=== PATIENT | female | born 1965 | race Caucasian/White ===

== ENCOUNTER 2017-02-19 15:33 | Emergency (ER) ==
--- NOTE | 2017-02-19 17:05 | PROVIDER DOCUMENTATION ---
HPI-Abdominal Pain/GI Problem - General Chief Complaint: Abdominal Pain Stated Complaint: ABD PAIN,DIARRHEA Time Seen by Provider: 02/19/17 16:59 Source: patient Allergies/Adverse Reactions: Patient Allergies Allergy/AdvReac Type Severity Reaction Status Date / Time dextromethorphan HBr * Allergy Intermediate RASH Verified 04/09/16 20:29 [From Robitussin-DM] guaifenesin Allergy Intermediate RASH Verified 04/09/16 20:29 [From Robitussin-DM] tramadol HCl * [From Ultram] Allergy Mild RASH Verified 04/09/16 20:29 rofecoxib [From Vioxx] Allergy HIVES Verified 04/09/16 20:29 sulfamethoxazole Allergy ITCHING Verified 04/09/16 20:29 [From Bactrim] trimethoprim [From Bactrim] Allergy ITCHING Verified 04/09/16 20:29 Home Medications: Home Medication List Medication Instructions Recorded Confirmed Last Taken Type Rosuvastatin Calcium [Crestor] 20 mg PO HS #30 tablet 07/29/15 04/16/16 19:00 Rx Trazodone [Desyrel] 150 mg PO QHS #30 tablet 07/29/15 04/16/16 04/15/16 19:00 Rx Aspirin 81 mg PO QAM 02/02/16 04/16/16 04/15/16 08:00 History BENAZEpril [Lotensin] 20 mg PO QAM 02/02/16 04/16/16 04/15/16 08:00 History Carvedilol [Coreg] 6.25 mg PO BID 02/02/16 04/16/16 04/15/16 08:00 History Clopidogrel [Plavix] 75 mg PO QAM 02/02/16 04/16/16 04/15/16 08:00 History Famotidine [Pepcid] 20 mg PO BID 02/02/16 04/16/16 04/15/16 09:00 History Fluoxetine [Prozac] 40 mg PO QAM 02/02/16 04/16/16 04/15/16 08:00 History Furosemide [Lasix] 40 mg PO QAM 02/02/16 04/16/16 04/15/16 08:00 History Isosorbide Mononitrate E.r. [Imdur] 30 mg PO QAM 02/02/16 04/16/16 04/15/16 08: 00 History Levothyroxine [Synthroid] 88 microgm PO QAM 02/02/16 04/16/16 04/15/16 07:00 History Metformin [Glucophage] 1,000 mg PO BID 02/02/16 04/16/16 04/16/16 18:00 History Fluticasone/Salmet 100/50 INH 1 puff INH RTBID #1 inhaler 04/16/16 Unknown Rx [Advair 100/50 Diskus] Ciprofloxacin HCl [Cipro] 500 mg PO BID #20 tablet 02/19/17 Unknown Rx Dicyclomine [Bentyl] 10 mg PO 4XDAY #60 capsule 02/19/17 Unknown Rx Famotidine [Pepcid] 20 mg PO DAILY #30 tablet 02/19/17 Unknown Rx Promethazine [Phenergan] 25 mg PO Q6H PRN PRN #30 tablet 02/19/17 Unknown Rx - History of Present Illness-ABD Nature of Presenting Problems: 51 y/o F c/o RUQ pain x 3 days. Pt states that pain getting worse, reports no radiation. States hx of chronic gallbladder pain, but has not followed up with surgeon due to insurance. States intermittent pain, worst is 9/10. States diarrhea and nausea, denies vomiting/constipation. States gets worse with eating/drinking. Denies hx of kidney stones. Reports diarrhea x 4 today. Review of Systems - Adult - REVIEW OF SYSTEMS - ADULT Constitutional: reports: no symptoms reported. denies: chills, fever Eyes: reports: no symptoms reported. denies: blurred vision, double vision Ears, Nose, Mouth & Throat: reports: no symptoms reported. denies: ear pain, nose pain Cardiovascular: reports: no symptoms reported. denies: chest pain, palpitations Respiratory: reports: see HPI, chronic cough. denies: cough, shortness of breath Gastrointestinal: reports: see HPI, abdominal pain, diarrhea, nausea. denies: constipation, vomiting Genitourinary: reports: no symptoms reported. denies: dysuria, frequency Musculoskeletal: reports: no symptoms reported Integumentary: reports: no symptoms reported. denies: nail changes, rash Neurological: reports: no symptoms reported. denies: numbness, paresthesia Psychiatric: reports: no symptoms reported Endocrine: reports: no symptoms reported. denies: cold intolerance, heat intolerance Hematologic/Lymphatic: reports: no symptoms reported. denies: easy bruising, prolonged bleeding Allergic/Immunologic: reports: no symptoms reported All Other Systems: Reviewed and Negative Past History - Adult - PAST MEDICAL HISTORY-ADULT Review of Records: reports: Nursing Assessment Review, Medications Reviewed Major Childhood Illnesses: reports: denies history Cardiovascular: reports: cardiac disease, heart valve problem, other (triple bypass) Respiratory: reports: denies history Gastrointestinal: reports: GERD Obstetrical/Gynecological: reports: ovarian cysts, other (cervical cancer) Genitourinary: reports: denies history Musculoskeletal: reports: denies history Neurological: reports: denies history Psychiatric: reports: depression, psychiatric problems Endocrine/Immune: reports: Diabetes, thyroid disorder (hypothyroid) Other Conditions: reports: denies history - PRIOR SURGERIES/PROCEDURES Surgical/Procedure History: reports: appendectomy, BTL, orthopedic (extremity) ( R knee, R ankle, bilat elbows), other (triple bypass) - PRIOR HOSPITALIZATIONS Prior Hospitalizations: reports: for similar symptoms - IMMUNIZATION STATUS Childhood Immunizations: UTD Flu Vaccine: See Nurse Assessment - FAMILY HISTORY Family History: reviewed, not pertinent Physical Exam-General - PHYSICAL EXAM-ADULT Initial Vital Signs Reviewed: Yes - CONSTITUTIONAL General Appearance: alert, mild distress - EYES Eyes: pink conjunctivae - HEAD, EARS, NOSE, MOUTH & THROAT HENMT: normocephalic/atraumatic - NECK Neck: normal inspection - RESPIRATORY Respiratory: no pleuratic chest pain, no respiratory distress, decreased breath sounds, wheezing (mild, bilat UL). negative: crackles, rales, rhonchi, stridor - CARDIOVASCULAR Cardiovascular: regular rate, rhythm. negative: bradycardia, tachycardia - GASTROINTESTINAL (ABDOMEN) Abdominal Exam: normal bowel sounds, soft, tenderness (RUQ), Rocha's sign. negative: distended, guarding, rigid, rebound, McBurney's point tenderness - MUSCULOSKELETAL Back Exam: normal inspection, no CVA tenderness Extremity: normal gait - SKIN Integumentary: normal color, normal turgor, warm/dry - NEUROLOGIC Neurologic: negative: aphasia - PSYCHIATRIC Psych/Mental Status: normal mood/affect, normal thought content, normal thought process, oriented x 3 Progress - PLAN OF CARE/RESULTS Progress/Plan/Lab Results: Discussed pt with Dr. Monroe; he agreed with d/c plan. Discussed medication use and f/u with pt. - XRAY 1 XRAY Study: Chest, Abdomen XRAY Interpretation: nonspecific gas pattern; perihilar lymphadenopathy with bronchitis Departure - Departure Time of Disposition Order: 18:50 DIAGNOSIS: Bronchitis Abdominal pain Qualifiers: Abdominal location: right upper quadrant Qualified Code(s): R10.11 - Right upper quadrant pain Disposition: HOME 01 Certified Medical Emergency: Emergent Condition: Stable Additional Instructions: Take medications as directed. Follow up with specialist for further management. Return if symptoms get worse. ED Follow Up Instructions: You have been treated by a care provider in the Emergency Department. These instructions are being provided to you so you can have an understanding of how to care for yourself upon discharge. Upon discharge from the Emergency Department, you are responsible for making arrangements for follow-up care by a physician of your choice. Take all prescribed medications as directed. Return to the Emergency Department immediately for any new or worsening symptoms. You may call the Physician Referral phone number at [phone] to obtain a list of Physicians who are taking new patients. Prescriptions: Dicyclomine [Bentyl] 10 mg PO 4XDAY #60 capsule Ciprofloxacin HCl [Cipro] 500 mg PO BID #20 tablet Famotidine [Pepcid] 20 mg PO DAILY #30 tablet Promethazine [Phenergan] 25 mg PO Q6H PRN PRN #30 tablet PRN Reason: Nausea Referrals: Valente Carroll MD [Primary Care Provider] - Sage Garcia MD [STAFF PHYSICIAN] - Attestation - Physician/ KELLEY Attestation Patient care was provided by Advanced Practice Provider:: Yes Advanced Practice Provider:: Kaylynn Montelongo Advanced Practice Provider documentation review:: The Mid-level provider documentation, treatment plan and medical decision making was reviewed by the physician who agrees with all treatment and medical decision making by the [facility].
[2017-02-19 17:32] LABS: BILIRUBIN URINE NEGATIVE (NEGATIVE); BLOOD URINE NEGATIVE (NEGATIVE); COLOR YELLOW; GLUCOSE URINE NEGATIVE (NEGATIVE); LEUKOCYTES URINE NEGATIVE (NEGATIVE); NITRITE URINE NEGATIVE (NEGATIVE); PROTEIN URINE NEGATIVE (NEGATIVE); SP GRAVITY URINE 1.008; TURBIDITY URINE CLEAR (CLEAR); URINE CULTURE NEEDED? NO; URINE MICRO REVIEW NEEDED? NO; URINE SOURCE CLEAN CATCH; UROBILINOGEN URINE NORMAL (NORMAL)
[2017-02-19 17:35] LABS: UR EPITHELIAL CELLS <10 /HPF (<10); URINE BACTERIA NEGATIVE /HPF; URINE RBC <10 /HPF (<10); URINE WBC <10 /HPF (<10)
[2017-02-19 18:06] LABS: MANUAL DIFF NEEDED? NO
[2017-02-19 18:14] LABS: BASO% 0.2 % (0.0-0.8); EOS# 0.15 X1000 (0.0-0.7); EOS% 1.3 % (0.0-10.0); HEMATOCRIT 46.3 % (37.0-47.0); HEMOGLOBIN 16.4 g/dL (12.0-16.0); IMM GRAN# 0.04 X1000 (0.0-0.04); IMM GRAN% 0.3 % (0.0-0.5); LYMPH% 28.2 % (20.5-51.1); MCH 31.8 PG (27-31); MCHC 35.4 g/dL (33-37); MCV 89.9 FL (81-99); MONO# 0.51 X1000 (0.11-0.59); MONO% 4.4 % (1.7-9.3); MPV 11.3 FL (7.4-10.4); NEUT% 65.6 % (42.2-75.2); PLT 184 X1000 (130-400); RBC 5.15 XMIL (4.2-5.4)
[2017-02-19 18:44] LABS: AGAP 18; ALBUMIN 4.1 g/dL (3.5-5.0); ALKALINE PHOSPHATASE 148 U/L (32-104); AMYLASE 68 U/L (20-200); BUN 6 mg/dL (8-22); CALCIUM 9.8 mg/dL (8.8-10.2); CHLORIDE 98 mmol/L (98-107); COSMO 271; GOT 18 U/L (10-30); GPT 17 U/L (10-36); LIPASE 75 U/L (13-60); SODIUM 136 mmol/L (136-145); TCO2 20 mmol/L (25-35); TOTAL BILIRUBIN 0.22 mg/dL (0.20-1.00); TOTAL PROTEIN 7.6 g/dL (6.3-8.3)
[2017-02-19] MEDS ORDERED: ROCEPHIN IM ONE (18:48)
[2017-02-19] MEDS ORDERED: XYLOCAINE-MPF 1% INJ ONE (18:48)
[2017-02-19] MEDS ORDERED: G.I. COCKTAIL PO ONE (18:48)
[2017-02-19] MEDS ORDERED: ZOFRAN ODT PO ONE (18:48)
[2017-02-19 20:07] VITALS: BP 157/71
--- NOTE | 2017-02-20 09:38 | Diag Imaging Result Document ---
PROCEDURE NAME: FLAT/UPRIGHT ABD/1 VIEW CHEST - 02/19/2017 PLAIN RADIOGRAPH OF THE CHEST AND ABDOMEN, 4 VIEWS: COMPARISON: Chest radiograph dated 04/16/2016 and chest and abdominal radiograph dated 02/17/2016. FINDINGS: There are nonspecific bowel gas and stool patterns. There is a trace amount of small bowel gas in the left side of the abdomen. There is nothing specific for bowel obstruction, however. There are stable metallic clips that project over the right lower quadrant. There is no evidence of large-volume free abdominal gas. The right hilum is somewhat prominent, which is not appreciated on the previous study. This may represent a perihilar infiltrate. Right hilar lymphadenopathy is possible. Consider evaluation with chest CT, preferably with IV contrast. At least a follow-up PA and lateral chest radiograph is recommended. The lungs are clear otherwise. There are stable CABG changes. Cardiac silhouette is unchanged. IMPRESSION: 1. ACR BI-RADS CATEGORY 2: BENIGN FINDING. Nonspecific abdomen. 2. Right hilar prominence as detailed above. Please see above discussion.
== END 2017-02-19 20:08 | disposition home or self-care (01) ==
LOC: ED 15:33
DX: J40 Bronchitis, not specified as acute or chronic (principal); R10.11 Right upper quadrant pain; R19.7 Diarrhea, unspecified; R11.0 Nausea; R05 Cough; K21.9 Gastro-esophageal reflux disease without esophagitis; Z85.41 Personal history of malignant neoplasm of cervix uteri; E03.9 Hypothyroidism, unspecified; E11.9 Type 2 diabetes mellitus without complications; F32.9 Major depressive disorder, single episode, unspecified; Z95.1 Presence of aortocoronary bypass graft; R06.2 Wheezing; Z79.899 Other long term (current) drug therapy; Z79.02 Long term (current) use of antithrombotics/antiplatelets; Z79.82 Long term (current) use of aspirin
CPT/HCPCS: 74022; 80053; 81001; 81025; 82150; 83690; 85025; J0696

== ENCOUNTER 2017-03-03 14:00 | Inpatient (IN) ==
--- NOTE | 2017-03-03 14:17 | EKG Report ---
Test Performed on : 03/03/2017 2:14:20 PM Test Reason : CHEST PAIN Blood Pressure : / mmHG Vent. Rate : 097 BPM Atrial Rate : 097 BPM P-R Int : 118 ms QRS Dur : 076 ms QT Int : 452 ms P-R-T Axes : 020 041 094 degrees QTc Int : 574 ms Normal sinus rhythm. Nonspecific ST and T wave abnormality Prolonged QT Abnormal ECG When compared with ECG of 27-FEB-2017 14:10, (Unconfirmed) Nonspecific T wave abnormality, worse in Anterior leads QT has lengthened Unconfirmed Result
[2017-03-03] MEDS ORDERED: MORPHINE IM ONE (15:42)
[2017-03-03] MEDS ORDERED: ZOFRAN IV ONE ×2 (15:42→19:27)
--- NOTE | 2017-03-03 15:42 | PROVIDER DOCUMENTATION ---
HPI-General Adult - General Chief Complaint: Shortness of Breath Stated Complaint: CHEST PAIN Time Seen by Provider: 03/03/17 15:14 Source: patient Allergies/Adverse Reactions: Patient Allergies Allergy/AdvReac Type Severity Reaction Status Date / Time dextromethorphan HBr * Allergy Intermediate RASH Verified 03/03/17 15:42 [From Robitussin-DM] guaifenesin Allergy Intermediate RASH Verified 03/03/17 15:42 [From Robitussin-DM] tramadol HCl * [From Ultram] Allergy Mild RASH Verified 03/03/17 15:42 rofecoxib [From Vioxx] Allergy HIVES Verified 03/03/17 15:42 sulfamethoxazole Allergy ITCHING Verified 03/03/17 15:42 [From Bactrim] trimethoprim [From Bactrim] Allergy ITCHING Verified 03/03/17 15:42 Home Medications: Home Medication List Medication Instructions Recorded Confirmed Last Taken Type Trazodone [Desyrel] 150 mg PO QHS #30 tablet 07/29/15 03/03/17 03/02/17 20:00 Rx Aspirin 81 mg PO QAM 02/02/16 03/03/17 03/03/17 09:00 History BENAZEpril [Lotensin] 20 mg PO QAM 02/02/16 03/03/17 03/03/17 09:00 History Carvedilol [Coreg] 6.25 mg PO BID 02/02/16 03/03/17 03/03/17 09:00 History Famotidine [Pepcid] 20 mg PO BID 02/02/16 03/03/17 03/03/17 09:00 History Fluoxetine [Prozac] 40 mg PO QAM 02/02/16 03/03/17 03/03/17 09:00 History Isosorbide Mononitrate E.r. [Imdur] 30 mg PO QAM 02/02/16 03/03/17 03/03/17 09: 00 History Levothyroxine [Synthroid] 88 microgm PO QAM 02/02/16 03/03/17 03/03/17 09:00 History Metformin [Glucophage] 1,000 mg PO BID 02/02/16 03/03/17 03/03/17 08:00 History Oxycodone HCl/Acetaminophen 1 each PO Q3-4H PRN PRN #30 tablet 02/27/1703/03/17 11:00 Rx [Percocet 5-325 mg Tablet] Buspirone HCl [Buspar] 5 mg PO BID 03/03/17 03/03/17 03/03/17 09:00 History Venlafaxine [Effexor] 75 mg PO DAILY 03/03/17 03/03/17 03/03/17 09:00 History - History of Present Illness -Gen Adult Nature of Presenting Problems: 52 yof with recent diagnosis of right lung cancer. Waiting to get in to see Oncologist at this time. Dring the night the patient developed new onset of SOB. Pt also has increased right chest pain with the SOB. Location of Pain/Injury: reports: chest Pain Radiation: reports: no radiation Quality of Pain: reports: aching, sharp Severity: reports: moderate Onset/Duration: reports: other Timing: reports: still present, getting worse Context/Activities at Onset: reports: none Similar Symptoms Previously?: No Recently seen or treated by another doctor?: No Review of Systems - Adult - REVIEW OF SYSTEMS - ADULT Constitutional: reports: see HPI Eyes: reports: no symptoms reported Ears, Nose, Mouth & Throat: reports: no symptoms reported Cardiovascular: reports: see HPI, chest pain Respiratory: reports: see HPI, cough, dyspnea on exertion, shortness of breath Gastrointestinal: reports: no symptoms reported Genitourinary: reports: no symptoms reported Musculoskeletal: reports: no symptoms reported Integumentary: reports: no symptoms reported Neurological: reports: no symptoms reported All Other Systems: Reviewed and Negative Past History - Adult - PAST MEDICAL HISTORY-ADULT Review of Records: reports: Old Records Reviewed, Nursing Assessment Review, Medications Reviewed, Social history reviewed & non-contributory. Major Childhood Illnesses: reports: denies history Cardiovascular: reports: cardiac disease, CHF, HTN, heart valve problem, hyperlipidemia, other (triple bypass) Respiratory: reports: denies history Gastrointestinal: reports: GERD Obstetrical/Gynecological: reports: ovarian cysts, other (cervical cancer) Genitourinary: reports: denies history Musculoskeletal: reports: denies history Neurological: reports: denies history Psychiatric: reports: depression, psychiatric problems Endocrine/Immune: reports: Diabetes, thyroid disorder (hypothyroid) Other Conditions: reports: denies history - PRIOR SURGERIES/PROCEDURES Surgical/Procedure History: reports: appendectomy, CABG, BTL, tonsillectomy, orthopedic (extremity) (R knee, R ankle, bilat elbows), other (triple bypass) - PRIOR HOSPITALIZATIONS Prior Hospitalizations: reports: for similar symptoms - IMMUNIZATION STATUS Childhood Immunizations: See Nurse Assessment Flu Vaccine: See Nurse Assessment - FAMILY HISTORY Family History: reviewed, not pertinent Physical Exam-General - PHYSICAL EXAM-ADULT Initial Vital Signs Reviewed: Yes - CONSTITUTIONAL General Appearance: appears well, alert, moderate distress (From pain) - EYES Eyes: PERRL/EOMI, pink conjunctivae - HEAD, EARS, NOSE, MOUTH & THROAT HENMT: normocephalic/atraumatic, moist mucous membranes, normal ENT inspection, TMs normal, pharynx normal - NECK Neck: non-tender, full range of motion, supple, normal inspection - RESPIRATORY Respiratory: chest non-tender, no respiratory distress, no accessory muscle use , decreased breath sounds, rhonchi - CARDIOVASCULAR Cardiovascular: normal peripheral pulses, regular rate, rhythm, no edema, no gallop, no JVD, no murmur - GASTROINTESTINAL (ABDOMEN) Abdominal Exam: normal bowel sounds, non tender, soft, no organomegaly, no pulsatile mass - LYMPHATIC Lymphatic: no adenopathy - MUSCULOSKELETAL Back Exam: normal inspection, no CVA tenderness, no vertebral tenderness Extremity: normal range of motion, non-tender, normal gait, normal inspection, no pedal edema, no calf tenderness, normal capillary refill, pelvis stable - SKIN Integumentary: normal color, normal turgor, warm/dry - NEUROLOGIC Neurologic: grossly normal - PSYCHIATRIC Psych/Mental Status: oriented x 3 Progress - PLAN OF CARE/RESULTS Progress/Plan/Lab Results: Vital Signs - 8 hr 03/03/17 14:05 Temperature 98.2 F Pulse Rate 99 H Respiratory Rate 21 Blood Pressure 159/70 O2 Sat by Pulse Oximetry 99 Orders Category Date Time Status EKG [EKG] Stat Ther 03/03/17 14:11 Draft Result Diagrams: 03/03/17 15:50 03/03/17 15:50 - CT/MRI 1 CT Study: Angiogram Impression: Abnormal (Large right hilar and mediastinal mass, mediastinal and right supraventricular adenopathy, as seen on 02/27/17. Some compression of SVC similar to prior, increased postobstructive consolidation/pneumonia at right upper lobe and superior segment of right lower lobe, small right pleural effusion, No evidence of PE. Per radiologist.) - CHANGE OF SHIFT REPORT (ED Provider) Report Given and Care Transferred to:: Ar Ureña ([facility]) Time of Transfer: 18:06 Items Pending: CT/MRI Results Comment: Lung CA, r/o PE, Hyponatremia, Leukocytosis Departure - Departure Time of Disposition Decision: 20:27 DIAGNOSIS: Mass of right lung, Hyponatremia Pneumonia Qualifiers: Pneumonia type: due to unspecified organism Laterality: right Lung location: unspecified part of lung Qualified Code(s): J18.9 - Pneumonia, unspecified organism Disposition: ADMITTED INPATIENT 09 Certified Medical Emergency: Emergent Condition: Stable Referrals and Follow-Ups: Valente Carroll MD [Primary Care Provider] - Attestation - Physician/ KELLEY Attestation Patient care was provided by Advanced Practice Provider:: Yes Advanced Practice Provider:: Ramirez Cole Advanced Practice Provider documentation review:: The Mid-level provider documentation, treatment plan and medical decision making was reviewed by the physician who agrees with all treatment and medical decision making by the [facility].
[2017-03-03 16:00] LABS: MANUAL DIFF NEEDED? NO
[2017-03-03 16:06] LABS: BASO% 0.1 % (0.0-0.8); EOS# 0.04 X1000 (0.0-0.7); EOS% 0.3 % (0.0-10.0); HEMATOCRIT 41.6 % (37.0-47.0); HEMOGLOBIN 14.7 g/dL (12.0-16.0); IMM GRAN# 0.05 X1000 (0.0-0.04); IMM GRAN% 0.3 % (0.0-0.5); LYMPH# 1.45 X1000 (1.2-3.4); LYMPH% 9.5 % (20.5-51.1); MCH 31.5 PG (27-31); MCHC 35.3 g/dL (33-37); MCV 89.3 FL (81-99); MONO# 0.94 X1000 (0.11-0.59); MONO% 6.2 % (1.7-9.3); MPV 10.9 FL (7.4-10.4); NEUT% 83.6 % (42.2-75.2); PLT 169 X1000 (130-400); RBC 4.66 XMIL (4.2-5.4)
[2017-03-03 16:20] LABS: AGAP 13; ALBUMIN 3.4 g/dL (3.5-5.0); ALKALINE PHOSPHATASE 151 U/L (32-104); BUN 4 mg/dL (8-22); CALCIUM 9.5 mg/dL (8.8-10.2); CHLORIDE 94 mmol/L (98-107); COSMO 256; GOT 26 U/L (10-30); GPT 25 U/L (10-36); POTASSIUM 3.9 mmol/L (3.5-5.1); SODIUM 127 mmol/L (136-145); TCO2 20 mmol/L (25-35); TOTAL BILIRUBIN 0.59 mg/dL (0.20-1.00)
--- NOTE | 2017-03-03 18:11 | ED EKG INTERP ---
This chart was entered by Yocasta Buckley Scribe, acting as scribe for Loi Camp MD. EKG Interpretation - EKG Time of EKG reading by physician:: 14:14 EKG Read and Signed by:: Loi Camp EKG Interpretation (*Must complete 3 of following elements*): Abnormal Rate: 97 Rhythm: NSR QRS: other (PROLONGED QT) ST Wave: non-specific ST changes (AND T WAVEW ABNORM) This chart was documented by the indicated scribe, (Yocasta Buckley Scribe) and accurately reflects the services I performed and decisions made by Conrado delgado Wenli X, MD, as attested by the provider's signature.
[2017-03-03] MEDS ORDERED: MORPHINE IV ONE (19:26)
[2017-03-03] MEDS ORDERED: ROCEPHIN 2 GM/NS 2 GM/50 ML IVPB IV ONE (19:49)
--- NOTE | 2017-03-03 21:16 | Diag Imaging Result Document ---
PROCEDURE NAME: ANGIOGRAM/PULMONARY ARTERIES - 03/03/2017 STUDY: CT chest with intravenous contrast. PROTOCOL: Dose reduction protocol. COMPARISON: Compared to 02/27/2017. No change in the right hilar and mediastinal mass with enlarged lymph nodes. There is development of a tiny right pleural effusion. No left effusion. The heart is not enlarged. No thoracic aortic aneurysm or dissection. Normal opacification of the pulmonary arteries and their major branches. Adenopathy and mass encase the right main pulmonary artery and it is at least partially compressed and smaller than the left main pulmonary artery. This is unchanged. Worsening postobstructive infiltrates primarily in the right upper lobe but also involving the right middle and lower lobe. Supraclavicular adenopathy is unchanged. Right main pulmonary bronchus is mildly narrowed similar to the prior exam. IMPRESSION: 1. No pulmonary emboli. 2. Worsening postobstructive consolidation/pneumonia primarily in the right upper lobe. 3. Development of a tiny right effusion. 4. The remainder of the exam is unchanged. A preliminary report was given at 7:12 p.m.
--- NOTE | 2017-03-03 22:26 | HISTORY AND PHYSICAL ---
PRIMARY CARE PROVIDER: Valente Carroll MD CHIEF COMPLAINT: Shortness of breath. Rib pain. Cough. HISTORY OF PRESENT ILLNESS: This is a 52-year-old female who was recently diagnosed with a new right lung mass room which has not been biopsied, but is suspicious for malignancy. She is waiting to see an oncologist at this time. During the night, the patient started having new-onset shortness of breath and right-sided chest and rib pain which did go along with the shortness of breath. She stated that her ribs had been hurting roughly for the past 2 weeks , but had increased last night and moved up into her chest. It did not radiate into her jaw, left side of her chest into either arm or through to her back. It was worse with cough. She also had fever and chills. She has been on 2 rounds of outpatient antibiotic for bronchitis and has had failed outpatient treatment. So she came into the emergency room. Laboratory data was obtained which showed an elevated white blood cell count at 15.26. A CT angiogram showed a right hilar and mediastinal mass, mediastinal and right supraventricular adenopathy, some compression of the SVC similar to a prior CT scan, increased postobstructive consolidation at the right upper lobe and superior segment of the right lower lobe. Also noted a small right pleural effusion. It ruled out pulmonary embolism. The patient will be admitted for further evaluation and treatment. PAST MEDICAL HISTORY: 1. Coronary artery disease status post coronary artery bypass grafting roughly 8 years ago. 2. Hypertension. 3. Hyperlipidemia. 4. Diabetes mellitus type 2, treated with p.o. medications. 5. GERD. 6. Hypothyroidism. 7. Depression. 8. COPD, but continues to use tobacco products. 9. New right-sided lung mass which has not been biopsied. However, it is suspicious for malignancy. PAST SURGICAL HISTORY: 1. Coronary artery bypass grafting 8 years ago. 2. Appendectomy. 3. Right knee surgery. 4. Right ankle and right elbow surgery. 5. Tubal ligation. 6. Tonsillectomy. 7. Tympanoplasty. SOCIAL HISTORY: She is . She lives behind her son in a [facility] trailer. She is unemployed. She lost her roughly 8 years ago. She has 3 children. Rarely uses alcohol, less than once a month. Continues to smoke a pack of cigarettes per day. Smoking cessation was gone over with the patient. She denies she wants to quit at this time. She has been smoking for roughly 35+ years. FAMILY HISTORY: Father is , had lung cancer, was a heavy smoker. Mother has is alive, has coronary artery disease and diabetes mellitus type 2. Half sister on her mother's side who has multiple sclerosis. One brother who has a history of diabetes and coronary artery disease. ALLERGIES: Dextromethorphan hydrobromide causing a rash. Guaifenesin causing a rash. Ultram causing rash. Vioxx causing hives. Bactrim DS causing itching. HOME MEDICATIONS: 1. Trazodone 150 mg p.o. at bedtime. 2. Aspirin 81 mg p.o. q.a.m. 3. Prozac 40 mg p.o. q.a.m. 4. Pepcid 20 mg p.o. b.i.d. 5. Coreg 6.25 mg p.o. b.i.d. 6. Benazepril 20 mg p.o. q.a.m. 7. Levothyroxine 88 mcg p.o. q.a.m. 8. Isosorbide 30 mg p.o. q.a.m. 9. Metformin 1000 mg p.o. b.i.d. 10. Percocet 5 one p.o. q 3-4 hours p.r.n. 11. Effexor 75 mg p.o. daily. 12. Buspar 5 mg p.o. b.i.d. REVIEW OF SYSTEMS: Fourteen point review of systems conducted with the patient. Pertinent positives listed above in the HPI. All other systems were reviewed and are negative. PHYSICAL EXAMINATION: VITAL SIGNS: Temperature 98.8 degrees, pulse 89, respirations 18, blood pressure 111/47, oxygen saturation 95-98% on room air. GENERAL: A pleasant 52-year-old female lying in the ER stretcher. She appears to be in some pain related to cough and is splinting herself with a pillow when she coughs. She is alert and oriented x3. Answers all questions appropriately. HEENT: Head is atraumatic, normocephalic. Pupils equal, round, reactive to light. Extraocular eye movement intact. Sclerae is anicteric. Conjunctivae is not pale. Oral mucosa is mildly dry. Otherwise, normal ENT assessment. NECK: Supple. No JVD. No thyromegaly. Trachea is midline. No cervical lymphadenopathy. CHEST: Symmetrical rise and fall with respirations. Chest pain on the right side is reproducible to palpation. LUNGS: Decreased bilaterally, greater on the right side. Wheezing noted on expiration mildly scattered throughout lung garcia. No rhonchi, no rales. CARDIOVASCULAR: S1-S2 appreciated. Regular rate. No murmurs, gallops, rubs. ABDOMEN: Protuberant, soft, nondistended, nontender. Bowel sounds present in all 4 quadrants. Normoactive. No pulsatile mass. No organomegaly. EXTREMITIES: No clubbing, cyanosis, or edema. 2+ pedal pulses bilaterally. GENITOURINARY: Patient voids, otherwise deferred. NEUROLOGICAL: Alert and oriented x3. Cranial nerves 2-12 appear to be grossly intact. No evidence of focal deficits. SKIN: Warm, dry and intact. No acute rash. PSYCHIATRIC: Patient has a somewhat depressed affect. DIAGNOSTIC DATA: CT of the thorax shows a large right hilar and mediastinal mass, mediastinal and right supraventricular adenopathy similar to seen on 02/27/2007, some compression of the SVC, also similar to prior. Increased postobstructive consolidation at right upper lobe and superior segment of right lower lobe. Small right pleural effusion. LABORATORY DATA: WBC 15.26, hemoglobin 14.7, hematocrit 41.6, platelet count 169,000. Sodium 127, potassium 3.9, chloride 94, carbon dioxide 20, BUN 4, creatinine 0.6, glucose 165. UA is pending. IMPRESSION AND PLAN: 1. Right upper and lower lobe postobstructive pneumonia. We will treat with intravenous Rocephin which was started in the emergency room. We will add doxycycline 100 mg intravenous q.12 hours. DuoNeb's q.6 hours. We will encourage to turn, cough and deep breathe. Also consult Dr. Sinclair related to postobstructive pneumonia and new lung mass. Blood cultures x2 are pending. 2. New right-sided lung mass which has not been defined, suspicious for malignancy. I will consult Dr. Ogden. 3. Rib pain with cough. I will give morphine 2 mg intravenously q.6 as this will help with bronchodilation. 4. Hypertension. Continue home medications. 5. Hyperlipidemia. Aware. Continue on home medications. 6. Diabetes mellitus type 2. Continue metformin and fingerstick blood sugars before meals and at bedtime. 7. Nicotine dependence. We will add a transdermal nicotine patch. Went over smoking cessation with the patient. She declines wanting to quit at this time. 8. Hypothyroidism. Check thyroid stimulating hormones level and continue Synthroid. Further recommendations per patient clinical course. Patient seen and examined. Agree with MIX CRUSHER OPERATOR note. It reflects my assessment and plan. Dictated by ISELA Wood for Mikey Nichols MD cc: ISELA Wood MD Gregory S. Cheatham, MD [facility] SYSTEMDavion
[2017-03-03] MEDS: DUONEB (A & A) INH SCH (23:45)
[2017-03-03] MEDS ORDERED: NORCO-10 PO SCH (23:45)
[2017-03-03] MEDS ORDERED: LOVENOX SUBQ SCH (23:45)
[2017-03-04] MEDS: NS 1,000 ML IV SCH ×3 (00:24→13:31)
[2017-03-04] MEDS: ZOSYN 3.375 GM/NS 3.375 GM/50 ML IVPB IV SCH ×6 (00:24→23:46)
[2017-03-04 00:35] LABS: HEMOGLOBIN A1C 7.1 % (4.8-6.0)
[2017-03-04] MEDS: NORCO-10 PO SCH ×3 (00:58→08:47)
[2017-03-04] MEDS: DUONEB (A & A) INH SCH ×4 (03:25→23:27)
[2017-03-04 06:48] LABS: MANUAL DIFF NEEDED? NO
[2017-03-04 07:10] LABS: AGAP 11; BUN 5 mg/dL (8-22); CALCIUM 9.2 mg/dL (8.8-10.2); CHLORIDE 99 mmol/L (98-107); COSMO 268; POTASSIUM 3.8 mmol/L (3.5-5.1); SODIUM 135 mmol/L (136-145); TCO2 25 mmol/L (25-35)
[2017-03-04 07:31] LABS: URINE SOURCE CLEAN CATCH
[2017-03-04 07:40] LABS: BILIRUBIN URINE NEGATIVE (NEGATIVE); BLOOD URINE NEGATIVE (NEGATIVE); CLARITY CLEAR (CLEAR); COLOR YELLOW; GLUCOSE URINE NEGATIVE (NEGATIVE); LEUKOCYTES URINE NEGATIVE (NEGATIVE); NITRITE URINE NEGATIVE (NEGATIVE); PROTEIN URINE NEGATIVE (NEGATIVE); UROBILINOGEN URINE 0.2 EU/dL (0.2-1.0)
[2017-03-04 07:55] LABS: URINE CULTURE NEEDED? NO; URINE EPITHELIAL CELLS <10 /HPF (<10); URINE RBC <10 /HPF (<10); URINE WBC <10 /HPF (<10)
[2017-03-04] MEDS ORDERED: GLUCOPHAGE PO SCH (08:00)
[2017-03-04] MEDS: SYNTHROID PO SCH (08:46)
[2017-03-04] MEDS: EFFEXOR PO SCH (08:48)
[2017-03-04] MEDS: BUSPAR PO SCH ×3 (08:48→23:45)
[2017-03-04] MEDS: ASPIRIN PO SCH (08:48)
[2017-03-04] MEDS: NICODERM PATCH TD SCH (08:49)
[2017-03-04] MEDS: PROZAC PO SCH (08:49)
[2017-03-04] MEDS ORDERED: IMDUR PO SCH (09:00)
[2017-03-04] MEDS ORDERED: PEPCID PO SCH (09:00)
[2017-03-04] MEDS ORDERED: COREG PO SCH (09:00)
[2017-03-04] MEDS ORDERED: LOTENSIN PO SCH (09:00)
[2017-03-04 10:03] LABS: BASO% 0.2 % (0.0-0.8); EOS# 0.06 X1000 (0.0-0.7); EOS% 0.5 % (0.0-10.0); HEMATOCRIT 41.8 % (37.0-47.0); HEMOGLOBIN 14.4 g/dL (12.0-16.0); IMM GRAN# 0.03 X1000 (0.0-0.04); IMM GRAN% 0.2 % (0.0-0.5); LYMPH# 2.72 X1000 (1.2-3.4); LYMPH% 21.1 % (20.5-51.1); MCH 31.3 PG (27-31); MCHC 34.4 g/dL (33-37); MCV 90.9 FL (81-99); MONO# 0.85 X1000 (0.11-0.59); MONO% 6.6 % (1.7-9.3); MPV 11.5 FL (7.4-10.4); NEUT% 71.4 % (42.2-75.2); PLT 170 X1000 (130-400)
[2017-03-04] MEDS ORDERED: VANCOMYCIN IV PER PHARMACY MISC SCH ×2 (11:00→15:30)
--- NOTE | 2017-03-04 11:27 | PROGRESS NOTE ---
DATE: 03/04/2017 SUBJECTIVE: The patient states that she feels a little bit better. She does complain of pleuritic chest pain whenever she has a coughing spell. OBJECTIVE: Vital Signs: Temperature 98.6 degrees, blood pressure 104/64, heart rate 70, respirations 18, O2 saturations 95% on 2 L nasal cannula. General: This is an elderly female, lying in bed, in no acute distress. Head: Normocephalic, atraumatic. Heart: S1, S2. Normal. Regular rate and rhythm. Lungs: coarse breath sounds. No crackles. Abdomen: Positive bowel sounds. Soft, nontender, nondistended. Extremities: No edema. No cyanosis. No calf tenderness. Neurologic: The patient is alert and oriented x3. LABS: White blood cell count 12.9, hemoglobin 14, hematocrit 41, platelets 170,000. Sodium 135, potassium 3.8, chloride 99, CO2 25, BUN 5, creatinine 0.5, glucose 117, calcium 9.2. ASSESSMENT AND PLAN: 1. Postobstructive pneumonia. We will continue with broad-spectrum antibiotics. A sputum culture is currently pending. Blood cultures are also pending. Pulmonary has been consulted. Will also add bronchodilator therapy and incentive spirometry. 2. Right-sided hilar and endobronchial mass. We will consult pulmonary. 3. Tobacco dependence. The patient states that she still smokes. We will start her on a NicoDerm patch. 4. Hypothyroidism. Continue on Synthroid. 5. Hypertension. Controlled. 6. Diabetes mellitus type 2. We will start the patient on sliding scale insulin. We will hold the patient's metformin since received IV contrast yesterday for the CT angiogram. 7. Situational depression. Continue on Effexor. 8. Coronary artery disease status post coronary artery bypass graft. Continue on the current cardiac medications. cc: Kaylynn Matta MD
[2017-03-04] MEDS ORDERED: NS 250 ML IV ONE (12:59)
[2017-03-04] MEDS ORDERED: VANCOMYCIN 1.6 GM in NS 250 ML IV ONE (13:00)
[2017-03-04] MEDS ORDERED: SOLU-MEDROL IV ONE (13:12)
[2017-03-04] MEDS ORDERED: BENADRYL IV ONE (13:13)
[2017-03-04] MEDS ORDERED: SODIUM CHLORIDE 0.9% INJ SCH (13:15)
[2017-03-04] MEDS: NORCO-10 PO PRN (16:37)
--- NOTE | 2017-03-04 17:56 | CONSULTATION ---
DATE OF CONSULTATION: 03/04/2017 CONCLUSION: Patient is admitted to the hospital with a right upper lobe consolidation. The exact etiology of this mass is uncertain. It could be an infection but also there is a good possibility it could be a malignancy. RECOMMENDATIONS: I agree with treating the patient with Zosyn. I have added vancomycin. I agree with doing a biopsy of the mass. Dr. Sinclair has been consulted and he will make the decision as to the best way to biopsy the mass if he agrees to it. DISCUSSION: The patient has been having severe right-sided chest pain which is worse with coughing. She has been coughing quite a bit. She had studies done which showed a right upper lobe mass. This has been going on for approximately 2-3 weeks. She does cough but does not seem to bring up any sputum. She has had some fever along with it. She has been treated twice with antibiotics without improvement in her symptoms. [place] [address], hemoglobin 14.4, and platelet count 170,000. Creatinine is 0.5. GFR is greater than 60. Liver function studies are normal except for an alkaline phosphatase of 151. Urinalysis shows no white cells or bacteria. Pulmonary angiogram shows worse right upper lobe postobstructive consolidation. Urinalysis showed no white cells or bacteria. PAST MEDICAL HISTORY: Positive for coronary artery disease, for which she is had coronary artery bypass grafting, hypertension, hyperlipidemia, diabetes, gastroesophageal reflux disease, hypothyroidism, depression,COPD, and most recently a right upper lobe mass. The patient is a cigarette smoker. PAST SURGICAL HISTORY: Positive for coronary artery bypass grafting, appendectomy, surgery on her right knee, surgery on her right ankle and elbow, tubal ligation, tonsillectomy and tympanoplasty. SOCIAL HISTORY: The patient is . She lives with her son in a trailer. Patient is unemployed. She drinks alcoholic beverages but I feel a very small amount. She smokes cigarettes daily. ALLERGIES: Dextromethorphan, guaifenesin, tramadol, Vioxx, trimethoprim sulfamethoxazole and vancomycin manifested by a rash. HOME MEDICATIONS: Include the following: Effexor, Desyrel, oxycodone, Percocet, metformin, Synthroid, Isordil, Prozac, Pepcid, Coreg, BuSpar, Lotensin and aspirin. PHYSICAL EXAMINATION: Vital Signs: Temperature is 98.3 degrees, pulse 71, respirations 22, blood pressure 104/53. General: This is an ill-appearing, middle-aged female. She is in no acute distress. Head, eyes, ears, nose, and throat: No drainage noted from the nose or ears. She can hear my spoken words and see near objects. Neck: No meningismus. Chest: There are diminished breath sounds in the right upper lobe. The left side and the lower right lobe have clear breath sounds. Cardiovascular: Regular heart rate with a small amount of edema in the legs. Abdomen: Soft without masses or tenderness. Neurologic: Patient is alert. She can move her extremities. There is no tremor. Thank you for the consult. cc: Dylon Claros MD
[2017-03-04] MEDS: ADVAIR 500/50 DISKUS INH SCH (19:41)
[2017-03-04] MEDS ORDERED: DESYREL PO SCH (21:00)
--- NOTE | 2017-03-04 21:42 | CONSULTATION ---
DATE OF CONSULTATION: 03/04/2017 REQUESTING PHYSICIAN: Kaylynn Matta MD REASON FOR CONSULTATION: Lung mass. HISTORY OF PRESENT ILLNESS: Ms. Winter is a 52-year-old white female with a 40 pack year history for tobacco (continues to smoke), with coronary artery disease, COPD, who has had difficulty with increasing cough over the last month. She was diagnosed with bronchitis and strep throat. She did not improve. She was evaluated the emergency room approximately 2 weeks ago and received an antibiotic for bronchitis. She developed right-sided chest wall pain which increased with cough and was evaluated in the emergency room. CT scan of the thorax was performed which reveals a right hilar mass with extension into the mediastinum with probable obstruction of the right upper lobe and involving the right middle lobe, supraclavicular adenopathy, mild narrowing of the right main bronchus. No pulmonary emboli were identified. PAST MEDICAL HISTORY: 1. COPD with ongoing tobacco use. 2. Coronary artery disease, status post 3 vessel bypass while she lived in [place]. 3. Hypertension. 4. Hypothyroidism. 5. Diabetes mellitus. 6. Gastroesophageal reflux. 7. Dyslipidemia. 8. Anxiety/depressive disorder. 9. Status post arthroscopic surgery on the right. 10. Status post right ankle surgery. 11. Status post bilateral elbow surgery. 12. Status post treatment for cervical dysplasia. 13. Status post tonsillectomy. SOCIAL HISTORY: Rare alcohol use. Ongoing tobacco use. FAMILY HISTORY: Mother has coronary artery disease. Father with lung cancer. REVIEW OF SYSTEMS: As noted in the HPI. PHYSICAL EXAMINATION: General: Reveals a well-developed, well-nourished, white female, who appears much older than her stated age of 52. Blood pressure 121/68, heart rate 87, respiration rate 18, oxygen saturation 97%. HEENT: Pupils are equal and reactive. Oropharynx is clear. Chest: Reveals expiratory wheezing. Decreased breath sounds right apex. Cardiac: Regular rate. Normal S1, normal S2. Abdomen: Soft and without hepatosplenomegaly. Extremities: Without edema. IMPRESSION: A 52-year-old with hilar and mediastinal mass with postobstructive pneumonia. She has extensive adenopathy. Computed tomography scan is most consistent with a lung cancer. Given presentation, this appears most likely to be a small-cell carcinoma, but this will need to be confirmed with biopsies. RECOMMENDATIONS: 1. Nothing per oral after midnight. 2. Continue current treatment with steroids and bronchodilators. 3. Smoking cessation is recommended. 4. Proceed with bronchoscopy tomorrow morning. cc: MD Saira Valdes CRNP
[2017-03-04] MEDS: PEPCID PO SCH (21:57)
[2017-03-04] MEDS: DILAUDID IV PRN (22:06)
[2017-03-04] MEDS: HUMULIN R SUBQ SCH (22:07)
[2017-03-05] MEDS ORDERED: VANCOMYCIN 1.4 GM in NS 250 ML IV SCH (01:00)
[2017-03-05] MEDS: DUONEB (A & A) INH SCH ×4 (03:19→22:45)
[2017-03-05] MEDS: DILAUDID IV PRN ×4 (03:36→20:59)
[2017-03-05] MEDS ORDERED: PROTONIX IV SCH (06:00)
[2017-03-05] MEDS: SYNTHROID PO SCH (06:34)
[2017-03-05] MEDS: ZOSYN 3.375 GM/NS 3.375 GM/50 ML IVPB IV SCH ×4 (06:34→23:04)
[2017-03-05 06:35] LABS: HEMATOCRIT 44.9 % (37.0-47.0); HEMOGLOBIN 15.2 g/dL (12.0-16.0); MCH 31.3 PG (27-31); MCHC 33.9 g/dL (33-37); MCV 92.6 FL (81-99); MPV 11.7 FL (7.4-10.4); RBC 4.85 XMIL (4.2-5.4)
[2017-03-05] MEDS: HUMULIN R SUBQ SCH ×4 (06:35→20:59)
[2017-03-05 07:11] LABS: AGAP 20; BUN 9 mg/dL (8-22); CALCIUM 8.9 mg/dL (8.8-10.2); CHLORIDE 101 mmol/L (98-107); COSMO 276; POTASSIUM 4.5 mmol/L (3.5-5.1); SODIUM 137 mmol/L (136-145); TCO2 16 mmol/L (25-35)
[2017-03-05] MEDS: ADVAIR 500/50 DISKUS INH SCH ×2 (10:11→22:44)
[2017-03-05] MEDS ORDERED: XYLOCAINE 2% ONE (10:22)
[2017-03-05] MEDS ORDERED: XYLOCAINE 2% VISCOUS ONE (10:23)
[2017-03-05] MEDS ORDERED: SODIUM CHLORIDE 0.9% 20 ML ONE (10:23)
[2017-03-05] MEDS ORDERED: EPINEPHRINE ONE (10:23)
[2017-03-05] MEDS ORDERED: XYLOCAINE 1% ONE (10:26)
[2017-03-05] MEDS: PEPCID PO SCH ×3 (10:40→20:59)
[2017-03-05] MEDS: PROZAC PO SCH ×2 (10:40→12:48)
[2017-03-05] MEDS: BUSPAR PO SCH ×3 (10:40→23:04)
[2017-03-05] MEDS: EFFEXOR PO SCH ×2 (10:41→12:48)
--- NOTE | 2017-03-05 12:11 | OPERATIVE NOTE ---
PROCEDURE DATE: 03/05/2017 PROCEDURE PERFORMED: Bronchoscopy with endobronchial biopsies. CLINICAL INDICATIONS.: A 52-year-old with large right hilar and mediastinal mass, with extensive tobacco history. DESCRIPTION OF PROCEDURE: After informed consent was obtained, patient was brought to operating room #8, where the procedure was performed. Topical anesthesia was achieved with nebulized lidocaine, followed by topical lidocaine to the right nostril, and 2% lidocaine was instilled above the vocal cords and 1% lidocaine was instilled below the vocal cords during the procedure. Monitored anesthesia care was provided by the AD TERMINAL MAKEUP OPERATOR. The patient had topical anesthesia achieved and conscious sedation achieved, the bronchoscope was advanced through the right nostril to the level of the vocal cords. The vocal cords were smooth and without lesions. The bronchoscope was advanced into the trachea. There were no endotracheal lesions. When the bronchoscope approached the eloisa, both the left and the mainstem could be visualized. The left mainstem revealed no lesions. The right mainstem had tumor seen on the anterior surface just after the eloisa. Tumor became more extensive and completely circumferential throughout the right bronchial tree by the time the scope reached the right lower lobe. Airways to the left upper lobe, lingula, and left lower lobe were patent and without lesions. Multiple biopsies were taken from the bronchus intermedius on the right side. Washings were performed from the trachea and from the right mainstem. The patient had mild bleeding associated with the biopsies, which was controlled with topical epinephrine. IMPRESSIONS: 1. Extensive tumor involving the right bronchial tree, beginning right after the entrance of the right mainstem. There is significantly more tumor burden on the anterior surface, as can be visualized on video imaging. 2. Biopsies and washings as per above. cc: Samir Sinclair MD
--- NOTE | 2017-03-05 12:38 | CONSULTATION ---
DATE OF CONSULTATION: 03/05/2017 REASON FOR CONSULTATION: The patient has a new right-sided lung mass suspicious for malignancy. HISTORY OF PRESENT ILLNESS: This 52-year-old female, who was recently diagnosed with a right lung mass suspicious for malignancy had not, at the time of admission, seen an oncologist at that point, and had not been biopsied at that point either, came in with worsening dyspnea and right- sided chest pain. Now, it is getting worse. She does have a significant history of smoking cigarettes. In the ER, a CT angiogram was performed which was negative for pulmonary embolism, but did show a worsening postobstructive pneumonia primarily in the right upper lobe, for which she has been started on broad-spectrum antibiotics. The patient has had a bronchoscopy performed today by Dr. Sinclair; we are awaiting pathology on that. REVIEW OF SYSTEMS: Negative unless indicated in HPI. PAST MEDICAL HISTORY: COPD, new right-sided lung mass, coronary artery disease, hypertension, diabetes type 2, depression. PAST SURGICAL HISTORY: Coronary artery bypass grafting 8 years ago. Right knee and ankle surgery. Tubal ligation. SOCIAL/FAMILY HISTORY: The patient continues to smoke. She has been a smoker for approximately 40 years. She lives with her son in a [facility]. Her father had a history of lung cancer. She denies alcohol or illicit drug use. ALLERGIES: Guaifenesin, Ultram, Vioxx and Bactrim DS. HOME MEDICATIONS: 1. Trazodone. 2. Aspirin. 3. Prozac. 4. Pepcid. 5. Coreg. 6. Benazepril. 7. Synthroid. 8. Isosorbide. 9. Metformin. 10. Percocet. 11. Effexor. 12. BuSpar. PHYSICAL EXAMINATION: Vital Signs: Stable. General: This is a female in no acute distress. HEENT: Head is normocephalic, atraumatic. Pupils equal. Oral mucosa is dry. Cardiovascular: S1, S2. Clear to auscultation with no heaves or thrills. Pulmonary: Diminished in the bases bilaterally with expiratory wheeze. Normal respiratory effort. GI: Abdomen soft, nondistended. Positive bowel sounds in all 4 quadrants. Neurologic: Alert and oriented x3. Musculoskeletal: Moves all extremities. Psychiatric: Appropriate to the situation. Skin: No petechiae, ecchymosis, or rash. DIAGNOSTIC DATA: CT chest shows large right hilar mediastinal mass, mediastinal right supraventricular adenopathy with compression of superior vena cava, increased postobstructive consolidation right upper lobe and superior segment of right lower lobe, and a small pleural effusion. ASSESSMENT AND PLAN: 1. New right-sided lung mass. The patient had a bronchoscopy today. We are awaiting pathology. She will need a PET scan as an outpatient. Will continue to follow along. 2. Postobstructive pneumonia. Antibiotics per primary team and infectious disease. 3. Diabetes type 2. Metformin. 4. Nicotinism. Dictated by ISELA Sanchez for Kirby Ogden MD cc: ISEAL Sanchez MD
[2017-03-05] MEDS: NICODERM PATCH TD SCH (12:47)
--- NOTE | 2017-03-05 13:31 | PROGRESS NOTE ---
DATE: 03/05/2017 SUBJECTIVE: The patient is preparing to undergo a bronchoscopy today. She has no complaints at this time. OBJECTIVE: Vital Signs: Temperature 98.6 degrees, blood pressure 131/60, heart rate 89, respirations 18, O2 saturations 98% on 2 L nasal cannula. General: This is an elderly female, sitting in bed, in no acute distress. Head: Normocephalic, atraumatic. Heart: S1, S2. Normal. Regular rate and rhythm. Lungs: Clear to auscultation bilaterally. Abdomen: Positive bowel sounds. Soft, nontender, nondistended. Extremities: No edema. No cyanosis. No calf tenderness. Neurologic: The patient is alert and oriented x3. LABS: Sodium 137, potassium 4.5 chloride 101, CO2 16, BUN 9, creatinine 0.6, glucose 163, calcium 8.9. ASSESSMENT AND PLAN: 1. Postobstructive pneumonia. Continue on intravenous antibiotic therapy. 2. Hilar and mediastinal lung mass. The patient is scheduled for bronchoscopy with biopsy today. 3. Diabetes mellitus type 2. Continue on sliding scale insulin. 4. Hypertension. Controlled. cc: Kaylynn Matta MD
--- NOTE | 2017-03-05 14:21 | PROGRESS NOTE ---
DATE: 03/05/2017 PRESENT ILLNESS: The patient has had bronchoscopy today. It was found that she has a large tumor mass at the beginning of the right mainstem bronchus. MEDICATIONS: The patient is receiving Zosyn. PHYSICAL EXAMINATION: Vital Signs: Temperature is 97.6 degrees, pulse 81, respirations 9, blood pressure 131/60. General: This is a somewhat ill-appearing middle-aged female. She is in no acute distress. Lungs: Clear to auscultation. Cardiovascular: Regular heart rate. Abdomen: Soft and nontender. LABORATORY AND X-RAY: The patient's CBC today showed a white count of 9250, hemoglobin 15.2, and platelet count 131,000. Creatinine is 0.6. GFR is greater than 60. ASSESSMENT AND PLAN: It sounds as though patient has lung cancer. For right now, I am going to keep Zosyn going pending the pathology report and culture results from the bronchoscopy. COMORBIDITY: Comorbidities include cigarette smoking, COPD, and a right lung mass. cc: Dylon Claros MD
[2017-03-05] MEDS ORDERED: FENTANYL ONE (14:47)
[2017-03-05] MEDS ORDERED: DIPRIVAN 1% ONE ×2 (14:47)
[2017-03-05] MEDS ORDERED: VERSED ONE (14:47)
[2017-03-05] MEDS: NORCO-10 PO PRN ×2 (15:06→23:08)
[2017-03-05] MEDS ORDERED: ROBINUL ONE (15:30)
[2017-03-05] MEDS ORDERED: XYLOCAINE-MPF 2% ONE (15:30)
[2017-03-05] MEDS ORDERED: NS 1,000 ML ONE (15:30)
[2017-03-05] MEDS ORDERED: ZOFRAN ONE (15:30)
[2017-03-05] MEDS: DESYREL PO SCH (23:05)
[2017-03-06] MEDS: DUONEB (A & A) INH SCH ×4 (04:56→23:12)
[2017-03-06] MEDS: DILAUDID IV PRN ×3 (05:09→22:01)
[2017-03-06] MEDS: HUMULIN R SUBQ SCH ×4 (06:37→20:22)
[2017-03-06 06:46] LABS: HEMATOCRIT 38.3 % (37.0-47.0); HEMOGLOBIN 12.5 g/dL (12.0-16.0); MCH 30.6 PG (27-31); MCHC 32.6 g/dL (33-37); MCV 93.6 FL (81-99); MPV 11.5 FL (7.4-10.4); RBC 4.09 XMIL (4.2-5.4)
[2017-03-06] MEDS: SYNTHROID PO SCH (06:46)
[2017-03-06] MEDS: ZOSYN 3.375 GM/NS 3.375 GM/50 ML IVPB IV SCH ×3 (06:46→17:37)
[2017-03-06 06:53] LABS: AGAP 8; BUN 7 mg/dL (8-22); CHLORIDE 101 mmol/L (98-107); COSMO 278; POTASSIUM 4.1 mmol/L (3.5-5.1); SODIUM 140 mmol/L (136-145); TCO2 31 mmol/L (25-35)
[2017-03-06] MEDS ORDERED: GLUCOPHAGE PO SCH (08:00)
[2017-03-06] MEDS: NORCO-10 PO PRN ×3 (08:42→20:26)
[2017-03-06] MEDS: ADVAIR 500/50 DISKUS INH SCH ×2 (09:22→23:12)
--- NOTE | 2017-03-06 09:27 | Diag Imaging Result Document ---
PROCEDURE NAME: HEAD W/O CONTRAST - 03/06/[address]: A CT dose reduction protocol was used. COMPARISON: 02/28/2013. FINDINGS: The ventricles and sulci are normal in size and contour. There is no mass, hemorrhage, or evidence of acute ischemia. The bony calvaria is intact. The visualized paranasal sinuses and mastoid air cells are clear. IMPRESSION: Negative head CT. [facility]
[2017-03-06] MEDS ORDERED: MIRALAX PO ONE (09:51)
--- NOTE | 2017-03-06 10:01 | Diag Imaging Result Document ---
PROCEDURE NAME: ABDOMEN/PELVIS W/O CONTRAST - 03/06/2017 CT ABDOMEN AND PELVIS: A CT dose reduction protocol was used. COMPARISON: 11/27/2015, 03/03/2017. FINDINGS: There is a trace right pleural effusion similar to prior. There is interlobular septal thickening in the right lung base with some slight patchy ill-defined infiltrates. The liver is heterogeneous in density with numerous small masses that are difficult to perceive. There is grossly stable splenomegaly. The spleen measures 14.6 x 6.1 cm. There is trace pelvic free fluid. There are apparent old appendectomy changes. No bowel obstruction or inflammation. Urinary bladder and rectum are normal. No radiodense renal stones or hydronephrosis. No obvious adenopathy in the abdomen or pelvis. Moderate degenerative changes of the lower lumbar spine and sacroiliac joints. No acute or destructive bony lesions. IMPRESSION: 1. Probable liver metastases. 2. Splenomegaly. 3. Trace pelvic free fluid. [facility]
[2017-03-06] MEDS: PEPCID PO SCH ×2 (10:12→20:27)
[2017-03-06] MEDS: PROZAC PO SCH (10:12)
[2017-03-06] MEDS: ASPIRIN PO SCH (10:12)
[2017-03-06] MEDS: NICODERM PATCH TD SCH (10:13)
[2017-03-06] MEDS: EFFEXOR PO SCH (10:13)
[2017-03-06] MEDS: BUSPAR PO SCH ×3 (10:13→17:37)
[2017-03-06] MEDS: COLACE PO SCH ×2 (12:12→20:27)
[2017-03-06 13:03] LABS: INR 1.04; PTT 29.2 Seconds (22.0-36.0)
--- NOTE | 2017-03-06 13:20 | PROGRESS NOTE ---
DATE: 03/06/2017 SUBJECTIVE: The patient complains of pain in the right chest wall region, but otherwise states that she is constipated. OBJECTIVE: Vital Signs: Temperature 98.4 degrees, blood pressure 152/71, heart rate 81 respirations 16, O2 saturations 96% on room air. General: This is an elderly female, sitting up in bed, in no acute distress. Head: Normocephalic, atraumatic. Heart: S1, S2. Normal. Regular rate and rhythm. Lungs: No crackles. No rales. Equal air entry bilaterally. Abdomen: Positive bowel sounds. Soft, nontender, nondistended. Extremities: No edema. No cyanosis. No calf tenderness. Neurologic: The patient is alert and oriented x3. LABS: White blood cell count 6.9, hemoglobin 12, hematocrit 38. Platelets 160, 000, sodium 140, potassium 4.1, chloride 101, CO2 31, BUN 7, creatinine 0.6, glucose 130. Calcium 9. ASSESSMENT AND PLAN: 1. Metastatic small cell lung carcinoma. The case was discussed with Dr. Ogden and he intends to start the patient on chemotherapy as an inpatient since she does not have health insurance coverage. We will consult general surgery for a Port-A-Cath placement. 2. Postobstructive pneumonia. Continue on IV antibiotic therapy. 3. Constipation. We will start the patient on scheduled laxatives. 4. Hypertension. Controlled. Continue on the current antihypertensives. 5. Situational depression. Continue on Effexor. 6. Hypothyroidism. Continue on Synthroid. 7. Diabetes mellitus type 2. Continue on sliding scale insulin. 8. Deep vein thrombosis prophylaxis. Continue with SCDs. cc: Kaylynn Matta MD [facility]
--- NOTE | 2017-03-06 13:55 | CONSULTATION ---
DATE OF CONSULTATION: 03/06/2017 HISTORY OF PRESENT ILLNESS: This 49-year-old female who has had a history the last several months for a chronic bronchitis she has been treated for as an outpatient. She developed worsening symptoms. CT scan showed a right endobronchial perihilar mass with lymphadenopathy concerning for a cancer. She has had a bronchoscopy with biopsy which is pending. She is admitted now. She has seems to be improving from a pneumonia standpoint, but plans to start chemotherapy for presumptive diagnosis and I was consulted for Mediport. She has had coronary bypass grafting with central line in the right before. PAST MEDICAL HISTORY: 1. Coronary artery disease. 2. Hypertension. 3. Hyperlipidemia. 4. Diabetes. 5. GERD. 6. Hypothyroidism. 7. Depression. 8. COPD with ongoing tobacco abuse pack a day. 9. Right lung mass with the presumptive cancer. PAST SURGICAL HISTORY: 1. Coronary artery bypass grafting 3 vessel 8 years ago. 2. Appendectomy. 3. Right knee. 4. Left ankle. 5. Left elbow. 6. Tubal ligation. 7. Tonsillectomy. 8. Tympanoplasties. 9. Operation for cervical dysplasia. SOCIAL HISTORY: She is and lives in a trailer. Smokes pack a day. Occasional alcohol. No other drugs. 35 year history of smoking at least. FAMILY HISTORY: Father had lung cancer. Mother had coronary disease, and diabetes. REVIEW OF SYSTEMS: Ten point negative except for what is mentioned HPI. PHYSICAL EXAMINATION: Vital Signs: Temperature is 98.3 degrees, pulse 76, blood pressure 130/73, oxygen saturation 94% on room air. General: She is alert. HEENT: No scleral icterus. Neck Exam: Shows some right supraclavicular fullness but no discrete lymphadenopathy. There are some scars on her right neck and a median sternotomy. Cardiovascular: Normal rate, regular rhythm. Pulmonary: She is on nasal cannula. Abdomen: Soft, nontender, nondistended. Integument: Warm and dry with no jaundice. Extremities: Otherwise well perfused. LABS: White count 6, hematocrit 38, platelets are 160,000. Creatinine is 0.6. ASSESSMENT AND PLAN: This is a 52-year-old female with newly diagnosed right lung mass felt to be cancer with extensive lymphadenopathy. Based on the lymphadenopathy I suspect this is unresectable and will need chemotherapy and thus consulted for Mediport. We discussed risks, benefits, alternatives including the risk of arterial injury, infection, bleeding and a pneumothorax. She understands and will be happy to do this. We could do this either over the weekend or if the plan is to go home I have given my card and she can call and we can set this up for 1 day next week as an outpatient. We will discuss with the Oncology Service what their plans are as far as inpatient chemotherapy and going forward and we can make arrangements to facilitate this. I have ordered coags just to make sure there is no abnormality here although suspect there is not. cc: Oj Garcia MD
--- NOTE | 2017-03-06 15:04 | PROGRESS NOTE ---
DATE: 03/06/2017 PRESENT ILLNESS: The patient had bronchoscopy 2 days ago. A biopsy of the mass in the lung shows that she has small-cell carcinoma. MEDICATIONS: The patient is still is receiving Zosyn. PHYSICAL EXAMINATION: Vital Signs: Temperature is 98.4 degrees, pulse 81, respirations 16, blood pressure 152/71. Generally: This is an ill-appearing middle-aged female who is in no acute distress. Lungs: There were some diminished breath sounds on the right side. The left side was clear. Cardiovascular: Regular heart rate. Abdomen: Soft and nontender. LAB AND X-RAY: As mentioned above, the patient's biopsy came back showing small-cell carcinoma. The patient's creatinine is 0.6. GFR is greater than 60. The patient does not have a new CBC today. The patient's bronchial washings are growing normal irena and 1 of the washings is showing no growth. ASSESSMENT AND PLAN: The patient has lung cancer and I am going to stop Zosyn today. I do not think the patient has pneumonia. COMORBIDITIES: Include cigarette smoking, COPD and lung cancer. I am available to see the patient on a p.r.n. basis. cc: Dylon Claros MD
[2017-03-06] MEDS: MIRALAX PO SCH (20:26)
[2017-03-06] MEDS: DULCOLAX PR SCH (20:26)
[2017-03-06] MEDS: DESYREL PO SCH (21:56)
[2017-03-07] MEDS: ZOSYN 3.375 GM/NS 3.375 GM/50 ML IVPB IV SCH ×5 (00:32→17:06)
[2017-03-07] MEDS: NORCO-10 PO PRN ×4 (02:00→22:39)
[2017-03-07] MEDS: DUONEB (A & A) INH SCH ×4 (03:05→23:05)
[2017-03-07] MEDS: HUMULIN R SUBQ SCH ×4 (06:06→20:09)
[2017-03-07] MEDS: SYNTHROID PO SCH (06:06)
[2017-03-07] MEDS: DILAUDID IV PRN ×3 (06:36→20:06)
[2017-03-07 06:58] LABS: AGAP 12; BUN 5 mg/dL (8-22); CALCIUM 9.7 mg/dL (8.8-10.2); CHLORIDE 102 mmol/L (98-107); COSMO 280; POTASSIUM 4.1 mmol/L (3.5-5.1); SODIUM 142 mmol/L (136-145); TCO2 28 mmol/L (25-35)
[2017-03-07] MEDS ORDERED: HEPARIN ONE (08:41)
[2017-03-07] MEDS ORDERED: XYLOCAINE 1%/EPI 1:100,000 ONE (08:41)
[2017-03-07] MEDS ORDERED: NS 250 ML ONE (08:41)
[2017-03-07] MEDS ORDERED: FENTANYL ONE (10:28)
[2017-03-07] MEDS ORDERED: VERSED ONE (10:28)
[2017-03-07] MEDS ORDERED: DIPRIVAN 1% ONE (10:28)
--- NOTE | 2017-03-07 10:40 | PROGRESS NOTE ---
DATE: 03/07/2017 SUBJECTIVE: No issues overnight. No breathing difficulties. Cardiovascular has remained stable. OBJECTIVE: Afebrile. Pulse 65, blood pressure 131/59, oxygen saturation 94% on room air. Numerous scars on her neck. Cardiovascular: Normal rate, regular rhythm. Pulmonary: Comfortable on room air. Integument is otherwise warm and dry. LABORATORIES: I reviewed her labs. White count was normal yesterday. Coags were normal yesterday. Creatinine 0.6. ASSESSMENT AND PLAN: This is a 52-year-old female with metastatic lung cancer. Plans for inpatient IV chemotherapy per Dr. Ogden and IV access is required. Risks, benefits and alternatives were including arterial injury, bleeding, infection, and pneumothorax were all discussed with the patient in depth both yesterday and today. She consents to placement of a Mediport. We will plan to do this today to facilitate the chemotherapy on Thursday. cc: Oj Garcia MD
[2017-03-07] MEDS ORDERED: SODIUM CHLORIDE 0.9% 10 ML ONE (10:43)
[2017-03-07] MEDS: ADVAIR 500/50 DISKUS INH SCH (11:41)
--- NOTE | 2017-03-07 11:47 | Diag Imaging Result Document ---
PROCEDURE NAME: CHEST-1 VIEW - 03/07/2017 PORTABLE CHEST X-RAY: COMPARISON: 03/03/2017. FINDINGS: There is a new right chest port in good position. No pneumothorax or large effusion. There is worsening opacification of the right upper lobe from the large obstructing right hilar mass. There is also diffuse pulmonary edema and mild cardiomegaly. IMPRESSION: No complication from port placement. Worsening postobstructive pneumonia in the right upper lobe.
[2017-03-07] MEDS: ASPIRIN PO SCH (12:11)
[2017-03-07] MEDS: MIRALAX PO SCH ×2 (12:11→20:09)
[2017-03-07] MEDS: PROZAC PO SCH (12:11)
[2017-03-07] MEDS: EFFEXOR PO SCH (12:12)
[2017-03-07] MEDS: BUSPAR PO SCH ×3 (12:13→17:05)
[2017-03-07] MEDS: COLACE PO SCH ×2 (12:13→20:09)
[2017-03-07] MEDS: PEPCID PO SCH ×2 (12:14→20:05)
[2017-03-07] MEDS: NICODERM PATCH TD SCH (12:14)
--- NOTE | 2017-03-07 14:11 | OPERATIVE NOTE ---
PROCEDURE DATE : 03/07/2017 PREOPERATIVE DIAGNOSIS: Metastatic lung cancer. POSTOPERATIVE DIAGNOSIS: Metastatic lung cancer. PROCEDURES PERFORMED: 1. Ultrasound-guided right internal jugular vein port placement. 2. Fluoroscopy less than 1 hour. ESTIMATED BLOOD LOSS: 10 mL. SPECIMENS: None. ANESTHESIA: Monitored anesthesia care with local. OPERATIVE INDICATION: This is a 52-year-old with metastatic lung cancer who is planning to undergo inpatient chemotherapy starting on Thursday. Port was indicated. OPERATIVE FINDINGS: 1. Ultrasound examination of the right neck showed a compressible jugular vein with no evidence of thrombus. Otherwise normal vascular anatomy. 2. Interpretation of fluoroscopy shows good positioning of the tip of the MediPort in the distal superior vena cava atrial junction with no kink of the catheter along the course. No evidence of postoperative complication. OPERATIVE NOTE: Risks, benefits, and alternatives discussed with patient, and she consented to procedure. She was seen in preoperative area, and surgery will be performed as confirmed. Taken to the operating room, placed supine position. She was receiving scheduled antibiotics; these were confirmed. Monitored IV anesthesia was administered. Bilateral neck and chest were prepped with Betadine and draped in the usual fashion. After a time-out was performed, ultrasound of the right neck was performed with above findings. Local anesthetic was infiltrated. Skin modesta was made with an 11 blade scalpel, and a pink introducer needle was used to access the internal jugular vein on the first pass. Dark nonpulsatile venous blood was noted on return. Wire threaded easily and was confirmed with fluoroscopy in the right side of the heart. We also confirmed with ultrasound that this coursed directly into the vein and did not traverse an artery. After satisfactory access to the venous system, we created a subcutaneous pouch two fingerbreadths below the clavicle. After infiltration of local anesthetic, we obtained hemostasis and confirmed this. Then tunneled the catheter to incision in the neck, measured this superimposed on the wire with fluoroscopy. A dilator introducer combination sheath was used under fluoroscopic guidance, and using the Seldinger technique was advanced in the superior vena cava. The dilator and wire were removed, and the catheter was threaded into the right atrium of the heart and was positioned well at the cavoatrial junction. We trimmed the catheter and connected the port and confirmed that it did withdraw blood and flush easily. We secured it within the subcutaneous pouch with 2-0 Prolene suture. There is no kinking of the catheter along its course. We closed the deep dermis with interrupted 3-0 Vicryl sutures, and the skin was closed with 4-0 Monocryl. Incision in neck was closed with 4-0 Monocryl. We then a second time using heparinized saline withdrew blood, in access port withdrew blood using a Zaidi needle, and it flushed easily without resistance. Final fluoroscopic image showed no kink in the catheter along its course with good positioning. Dermabond was applied. She tolerated the procedure well with no identified complications, transferred to PACU in good condition, where a chest x-ray was ordered. I spoke with the family. cc: Oj Garcia MD
--- NOTE | 2017-03-07 15:06 | PROGRESS NOTE ---
DATE: 03/07/2017 SUBJECTIVE: The patient has just returned from having her Port-A-Cath placed. She states that she is hurting at this time. OBJECTIVE: Vital Signs: Temperature 98.6 degrees, blood pressure 135/64, heart rate 74, respirations 18, O2 saturations 95% on 2 L nasal cannula. General: This is an elderly female, sitting up in bed, in no acute distress. Head: Normocephalic, atraumatic. Heart: S1, S2. Normal. Regular rate and rhythm. Lungs: Coarse breath sounds bilaterally. No wheezing. No rales. Abdomen: Positive bowel sounds. Soft, nontender, nondistended. Extremities: No edema. No cyanosis. No calf tenderness. Neuro: The patient is alert and oriented x3. LABS: Sodium 142, potassium 4.1, chloride 102, CO2 28, BUN 5, creatinine 0.6, glucose 99. ASSESSMENT AND PLAN: 1. Metastatic small-cell lung carcinoma. The patient had a port placed today. Oncology is following and will initiate chemotherapy. 2. Postobstructive pneumonia. The patient is currently on Zosyn. Continue with bronchodilator therapy and supplemental oxygen. 3. Diabetes mellitus type 2. Continue on sliding scale insulin. 4. Tobacco dependence. The patient has been counseled about smoking cessation. The patient did leave her room and go outside to smoke yesterday. 5. Situational depression. Continue on Prozac. 6. Constipation. Continue on scheduled laxatives. 7. Hypothyroidism. Continue on Synthroid. 8. Deep vein thrombosis prophylaxis. Continue with SCDs. We will restart the Lovenox tomorrow. cc: Kaylynn Matta MD
[2017-03-07] MEDS: LASIX IV ONE ×2 (17:06→17:11)
[2017-03-07] MEDS: PERIDEX MT SCH (20:05)
[2017-03-07] MEDS: DULCOLAX PR SCH (20:10)
[2017-03-07] MEDS: DESYREL PO SCH (22:39)
[2017-03-08] MEDS: ZOSYN 3.375 GM/NS 3.375 GM/50 ML IVPB IV SCH ×5 (00:45→23:20)
[2017-03-08] MEDS: DILAUDID IV PRN ×5 (03:47→23:15)
[2017-03-08] MEDS: NORCO-10 PO PRN ×4 (05:26→18:41)
[2017-03-08] MEDS: SYNTHROID PO SCH ×2 (05:52→06:09)
[2017-03-08] MEDS: DUONEB (A & A) INH SCH ×5 (06:01→21:50)
[2017-03-08 06:15] LABS: MANUAL DIFF NEEDED? NO
[2017-03-08 06:21] LABS: BASO% 0.2 % (0.0-0.8); EOS# 0.07 X1000 (0.0-0.7); EOS% 1.1 % (0.0-10.0); HEMATOCRIT 39.8 % (37.0-47.0); HEMOGLOBIN 13.2 g/dL (12.0-16.0); IMM GRAN# 0.03 X1000 (0.0-0.04); IMM GRAN% 0.5 % (0.0-0.5); LYMPH# 1.66 X1000 (1.2-3.4); LYMPH% 26.1 % (20.5-51.1); MCH 30.4 PG (27-31); MCHC 33.2 g/dL (33-37); MCV 91.7 FL (81-99); MONO# 0.28 X1000 (0.11-0.59); MONO% 4.4 % (1.7-9.3); NEUT% 67.7 % (42.2-75.2); PLT 191 X1000 (130-400); RBC 4.34 XMIL (4.2-5.4)
[2017-03-08] MEDS: HUMULIN R SUBQ SCH ×4 (06:22→20:51)
[2017-03-08 07:08] LABS: AGAP 13; ALBUMIN 3.3 g/dL (3.5-5.0); ALKALINE PHOSPHATASE 182 U/L (32-104); BUN 5 mg/dL (8-22); CALCIUM 9.3 mg/dL (8.8-10.2); CHLORIDE 99 mmol/L (98-107); COSMO 280; GOT 22 U/L (10-30); GPT 27 U/L (10-36); POTASSIUM 3.2 mmol/L (3.5-5.1); SODIUM 141 mmol/L (136-145); TCO2 29 mmol/L (25-35); TOTAL PROTEIN 7.2 g/dL (6.3-8.3)
[2017-03-08] MEDS: MIRALAX PO SCH ×2 (08:27→20:53)
[2017-03-08] MEDS: BUSPAR PO SCH ×3 (08:27→18:37)
[2017-03-08] MEDS: COLACE PO SCH ×2 (08:27→20:53)
[2017-03-08] MEDS: NICODERM PATCH TD SCH (08:27)
[2017-03-08] MEDS: EFFEXOR PO SCH (08:28)
[2017-03-08] MEDS: ASPIRIN PO SCH (08:28)
[2017-03-08] MEDS: PEPCID PO SCH ×2 (08:28→20:50)
[2017-03-08] MEDS: PERIDEX MT SCH ×2 (08:29→20:50)
[2017-03-08] MEDS: PROZAC PO SCH (08:34)
[2017-03-08] MEDS ORDERED: KLOR-CON PO ONE (09:25)
[2017-03-08] MEDS: ADVAIR 500/50 DISKUS INH SCH ×2 (09:29→19:42)
[2017-03-08] MEDS ORDERED: NS IV ONE ×2 (10:00→10:30)
[2017-03-08] MEDS ORDERED: DECADRON IV ONE (10:00)
[2017-03-08] MEDS ORDERED: ZOFRAN IV ONE (10:00)
[2017-03-08] MEDS ORDERED: PARAPLATIN IV ONE (10:30)
[2017-03-08] MEDS ORDERED: VEPESID IV SCH (11:30)
[2017-03-08] MEDS ORDERED: NS IV SCH (11:30)
[2017-03-08] MEDS: LOVENOX SUBQ SCH (12:29)
--- NOTE | 2017-03-08 15:07 | PROGRESS NOTE ---
DATE: 03/08/2017 SUBJECTIVE: The patient complains of right-sided chest wall pain. She has no other complaints. OBJECTIVE: Vital Signs: Temperature 98 degrees, blood pressure 147/73, heart rate 78, respirations 16. O2 saturations 97% on room air. General: This is an elderly female, lying in bed, in no acute distress. Head: Normocephalic, atraumatic. Heart: S1, S2. Normal. Regular rate and rhythm. Lungs: Clear to auscultation bilaterally. Abdomen: Positive bowel sounds. Soft, nontender, nondistended. Extremities: No edema. No cyanosis. Neurologic: The patient is alert and oriented x3. LABORATORY: Sodium 141, potassium 3.2, chloride 99, CO2 29, BUN 5, creatinine 0.6, glucose 123. ASSESSMENT AND PLAN: 1. Metastatic small cell lung carcinoma. The patient is scheduled to start chemotherapy tomorrow. Further management as per the oncologist. 2. Postobstructive pneumonia. So far the cultures from the bronchoscopy are unremarkable. The patient is currently on Zosyn. Continue with supplemental oxygen and bronchodilator therapy. 3. Diabetes mellitus type 2. Continue on sliding scale insulin. 4. Tobacco dependence. Continue on the NicoDerm patch. 5. Situational depression. Continue on Prozac. 6. Constipation. Continue on scheduled laxatives. 7. Hypothyroidism. Continue on Synthroid. 8. Deep vein thrombosis prophylaxis. We will restart Lovenox today. cc: Kaylynn Matta MD
[2017-03-08] MEDS: ATIVAN IV PRN ×2 (15:17→23:16)
[2017-03-08] MEDS: DULCOLAX PR SCH (20:50)
[2017-03-08] MEDS: DESYREL PO SCH (22:06)
[2017-03-09] MEDS: DUONEB (A & A) INH SCH ×4 (03:55→21:15)
[2017-03-09] MEDS: HUMULIN R SUBQ SCH ×4 (06:22→22:47)
[2017-03-09] MEDS: ZOSYN 3.375 GM/NS 3.375 GM/50 ML IVPB IV SCH ×3 (06:29→21:28)
[2017-03-09] MEDS: DILAUDID IV PRN ×3 (06:29→21:32)
[2017-03-09] MEDS: SYNTHROID PO SCH (06:29)
[2017-03-09 06:38] LABS: MANUAL DIFF NEEDED? NO
[2017-03-09 07:02] LABS: BASO% 0.3 % (0.0-0.8); EOS# 0.13 X1000 (0.0-0.7); EOS% 1.6 % (0.0-10.0); HEMATOCRIT 43.1 % (37.0-47.0); HEMOGLOBIN 14.2 g/dL (12.0-16.0); IMM GRAN# 0.08 X1000 (0.0-0.04); LYMPH# 2.14 X1000 (1.2-3.4); MCH 30.3 PG (27-31); MCHC 32.9 g/dL (33-37); MCV 92.1 FL (81-99); MONO# 0.44 X1000 (0.11-0.59); MONO% 5.5 % (1.7-9.3); MPV 10.8 FL (7.4-10.4); NEUT% 64.6 % (42.2-75.2); PLT 212 X1000 (130-400); RBC 4.68 XMIL (4.2-5.4)
[2017-03-09 07:26] LABS: AGAP 15; ALBUMIN 3.3 g/dL (3.5-5.0); ALKALINE PHOSPHATASE 174 U/L (32-104); BUN 4 mg/dL (8-22); CALCIUM 9.5 mg/dL (8.8-10.2); CHLORIDE 101 mmol/L (98-107); COSMO 281; GOT 22 U/L (10-30); GPT 24 U/L (10-36); MAGNESIUM 2.1 mg/dL (1.5-2.7); POTASSIUM 3.9 mmol/L (3.5-5.1); SODIUM 142 mmol/L (136-145); TCO2 26 mmol/L (25-35); TOTAL BILIRUBIN 0.26 mg/dL (0.20-1.00); TOTAL PROTEIN 7.2 g/dL (6.3-8.3)
--- NOTE | 2017-03-09 08:12 | Diag Imaging Result Document ---
PROCEDURE NAME: CHEST-2 VIEWS - 03/09/2017 FRONTAL AND LATERAL CHEST, TWO VIEWS: COMPARISON: Compared to 03/07/2017. FINDINGS: No change in the right-sided [id number]. Sternal wires are present. Interval improvement in the right upper lobe infiltrates. The left lung remains well expanded and clear. No pleural effusions. No cardiomegaly. IMPRESSION: Interval improvement although dense infiltrates remain in the right upper lobe.
[2017-03-09] MEDS ORDERED: PHENERGAN PO PRN (08:14)
[2017-03-09] MEDS: NICODERM PATCH TD SCH (08:34)
[2017-03-09] MEDS: EFFEXOR PO SCH (08:34)
[2017-03-09] MEDS: ATIVAN IV PRN ×3 (08:34→17:49)
[2017-03-09] MEDS: PROZAC PO SCH (08:35)
[2017-03-09] MEDS: PERIDEX MT SCH ×2 (08:35→21:30)
[2017-03-09] MEDS: LOVENOX SUBQ SCH (08:35)
[2017-03-09] MEDS: ASPIRIN PO SCH (08:35)
[2017-03-09] MEDS: NORCO-10 PO PRN ×3 (08:35→17:49)
[2017-03-09] MEDS: PEPCID PO SCH ×2 (08:35→21:31)
[2017-03-09] MEDS: COLACE PO SCH ×2 (08:35→21:32)
[2017-03-09] MEDS: MIRALAX PO SCH ×2 (08:36→21:35)
[2017-03-09] MEDS: BUSPAR PO SCH ×3 (08:36→21:31)
--- NOTE | 2017-03-09 09:08 | PROGRESS NOTE ---
DATE: 03/09/2017 SUBJECTIVE: Patient has had a good night. No complaints this morning. Family is present in the room. She is due to start chemotherapy. Port-A-Cath has been placed. I received a call from Dr. Fleming about a preliminary biopsy report that reads small-cell lung cancer. OBJECTIVE: Vital signs: Afebrile. Vital signs are stable. HEENT: EOMI. PERRLA. Anicteric. Mucous membranes are moist. Cardiac Exam: Regular rate and rhythm. Normal S1, S2. Chest: Clear to auscultation. Abdomen: Soft, nontender, without splenomegaly. Mild hepatomegaly is noted. Extremities: No cyanosis, clubbing, or edema. Neurological: Alert and oriented x3. No focal motor deficits. LABS: White count 7.9, hemoglobin 14.2, platelets 212,000. BUN 4, creatinine 0.6. Alkaline phosphatase 174. Otherwise LFTs are normal. ASSESSMENT AND PLAN: 1. Extensive stage small-cell lung cancer: I discussed the disease status, prognosis, and further management. Family and patient had several questions which were answered to their satisfaction. Proceed with carboplatin and etoposide at full doses today. She will receive etoposide on day 1 through 3 and carboplatin on day 1. Monitor for infusion reactions and side effects. 2. Antiemetic prophylaxis: She will receive Zofran and Decadron. She will take Reglan and Phenergan as needed. 3. Tumor lysis: It is unusual to have tumor lysis; however, we will monitor this closely. cc: Kirby Ogden MD
[2017-03-09] MEDS ORDERED: LR 1,000 ML ONE (09:12)
[2017-03-09] MEDS ORDERED: XYLOCAINE-MPF 2% ONE (09:12)
[2017-03-09] MEDS ORDERED: ZOFRAN IV ONE (10:00)
[2017-03-09] MEDS ORDERED: NS IV ONE ×2 (10:00→10:30)
[2017-03-09] MEDS ORDERED: DECADRON IV ONE (10:00)
[2017-03-09] MEDS ORDERED: PARAPLATIN IV ONE (10:30)
[2017-03-09] MEDS: ADVAIR 500/50 DISKUS INH SCH ×2 (10:54→21:15)
[2017-03-09] MEDS ORDERED: ZOFRAN 16 MG in NS 50 ML IV SCH (11:00)
[2017-03-09] MEDS: NS IV SCH (14:57)
[2017-03-09] MEDS: VEPESID IV SCH (14:57)
--- NOTE | 2017-03-09 16:04 | PROGRESS NOTE ---
DATE: 03/09/2017 SUBJECTIVE: Patient has no focal complaints. OBJECTIVE: Vital signs: Blood pressure 148/92, heart rate of 88, respiratory rate 18, temperature 98.2 degrees, 91% on room air. Cardiovascular: Regular rate and rhythm. Pulmonary: Bilateral breath sounds. Clear to auscultation. GI: Soft, nontender, nondistended. Bowel sounds are positive. Extremities: No clubbing or cyanosis. Lymphatics: No peripheral edema. Neurological: Nonfocal. LABORATORY DATA: Hemoglobin and hematocrit 14 and 43, white count 7.9, platelets 212,000. Chemistries unremarkable PROBLEM LIST: 1. Small-cell cancer. She is on chemo right now, carboplatin and Zofran and dexamethasone. On day 3 of treatment. We will monitor for tumor lysis syndrome. 2. Pneumonia. Clinically she has improved. I think we can probably transition her to oral antibiotics here soon. Currently she is on Zosyn. 3. Hypothyroidism. Continue treatment and follow. DISPOSITION: Home when clinically stable. We will continue to monitor very closely. cc: Jacques Almeida MD
[2017-03-09] MEDS: DESYREL PO SCH (21:31)
[2017-03-09] MEDS: DULCOLAX PR SCH (21:35)
[2017-03-10] MEDS: ZOSYN 3.375 GM/NS 3.375 GM/50 ML IVPB IV SCH ×4 (02:43→19:39)
[2017-03-10] MEDS: DUONEB (A & A) INH SCH ×4 (03:40→19:32)
[2017-03-10] MEDS: NORCO-10 PO PRN ×3 (04:21→22:43)
[2017-03-10] MEDS: HUMULIN R SUBQ SCH ×4 (06:12→21:00)
[2017-03-10] MEDS: DILAUDID IV PRN ×4 (06:42→18:38)
[2017-03-10] MEDS: SYNTHROID PO SCH (06:53)
[2017-03-10 07:02] LABS: HEMATOCRIT 39.8 % (37.0-47.0); MCH 30.7 PG (27-31); MCHC 32.7 g/dL (33-37); MCV 93.9 FL (81-99); MPV 10.5 FL (7.4-10.4); RBC 4.24 XMIL (4.2-5.4)
[2017-03-10 07:34] LABS: AGAP 12; BUN 7 mg/dL (8-22); CALCIUM 9.6 mg/dL (8.8-10.2); CHLORIDE 103 mmol/L (98-107); COSMO 281; MAGNESIUM 2.2 mg/dL (1.5-2.7); POTASSIUM 4.4 mmol/L (3.5-5.1); SODIUM 141 mmol/L (136-145); TCO2 26 mmol/L (25-35)
[2017-03-10] MEDS: MIRALAX PO SCH ×2 (09:36→20:52)
[2017-03-10] MEDS: NICODERM PATCH TD SCH (09:36)
[2017-03-10] MEDS: PROZAC PO SCH ×2 (09:36→09:39)
[2017-03-10] MEDS: PERIDEX MT SCH ×2 (09:36→20:52)
[2017-03-10] MEDS: BUSPAR PO SCH ×3 (09:36→20:52)
[2017-03-10] MEDS: ASPIRIN PO SCH (09:36)
[2017-03-10] MEDS: ATIVAN IV PRN ×2 (09:37→18:38)
[2017-03-10] MEDS: COLACE PO SCH ×2 (09:37→20:53)
[2017-03-10] MEDS: EFFEXOR PO SCH (09:37)
[2017-03-10] MEDS: LOVENOX SUBQ SCH (09:37)
[2017-03-10] MEDS: PEPCID PO SCH ×2 (09:37→20:53)
[2017-03-10] MEDS: ADVAIR 500/50 DISKUS INH SCH ×2 (10:46→19:30)
--- NOTE | 2017-03-10 13:46 | PROGRESS NOTE ---
DATE: 03/10/2017 SUBJECTIVE: The patient has no complaints. She is up, awake. No complaints. OBJECTIVE: Blood pressure was 146/64, heart rate 75, respiratory 16, temperature 97.7 degrees, 90% on room air.Cardiovascular: Regular rate and rhythm. Pulmonary: Bilateral breath sounds. Clear to auscultation. GI: Soft, nontender, nondistended. Bowel sounds are positive. LABORATORY DATA: White count is normal 8.8, hemoglobin and hematocrit 13 and 39, platelets 234,000. Glucose 123. PROBLEM LIST: 1. Small-cell cancer. She is undergoing day 2 of treatment with carboplatin and etoposide, at least etoposide was dosed yesterday. In any case, tomorrow will be final day of treatment for this round and clinically she appears stable. 2. COPD, hypoxia. She appears to be doing okay however I will proceed with a home oxygen evaluation. 3. Pneumonia. She is on Zosyn. I think we can probably discharge her on Augmentin to complete her course. 4. Disposition. Anticipate discharge tomorrow if stable. cc: Jacques Almeida MD
[2017-03-10] MEDS: ZOFRAN 16 MG in NS 50 ML IV SCH (14:50)
[2017-03-10] MEDS: NS IV SCH (15:06)
[2017-03-10] MEDS: VEPESID IV SCH (15:06)
[2017-03-10] MEDS: DULCOLAX PR SCH (20:52)
[2017-03-10] MEDS: DESYREL PO SCH (22:43)
[2017-03-11] MEDS: ZOSYN 3.375 GM/NS 3.375 GM/50 ML IVPB IV SCH ×3 (02:21→16:56)
[2017-03-11] MEDS: DUONEB (A & A) INH SCH ×3 (03:45→15:00)
[2017-03-11] MEDS: NORCO-10 PO PRN ×4 (05:02→16:51)
[2017-03-11] MEDS: SYNTHROID PO SCH (06:11)
[2017-03-11] MEDS: HUMULIN R SUBQ SCH ×3 (06:12→16:57)
[2017-03-11 06:36] LABS: MANUAL DIFF NEEDED? NO
[2017-03-11 06:52] LABS: BASO% 0.3 % (0.0-0.8); EOS# 0.09 X1000 (0.0-0.7); EOS% 1.4 % (0.0-10.0); HEMATOCRIT 38.5 % (37.0-47.0); HEMOGLOBIN 12.5 g/dL (12.0-16.0); IMM GRAN# 0.04 X1000 (0.0-0.04); IMM GRAN% 0.6 % (0.0-0.5); LYMPH# 2.61 X1000 (1.2-3.4); LYMPH% 41.3 % (20.5-51.1); MCH 30.8 PG (27-31); MCHC 32.5 g/dL (33-37); MCV 94.8 FL (81-99); MONO# 0.28 X1000 (0.11-0.59); MONO% 4.4 % (1.7-9.3); MPV 10.6 FL (7.4-10.4); PLT 196 X1000 (130-400); RBC 4.06 XMIL (4.2-5.4)
[2017-03-11] MEDS: DILAUDID IV PRN ×2 (07:39→15:04)
[2017-03-11 08:36] LABS: AGAP 13; ALBUMIN 3.1 g/dL (3.5-5.0); ALKALINE PHOSPHATASE 141 U/L (32-104); BUN 8 mg/dL (8-22); CALCIUM 9.1 mg/dL (8.8-10.2); CHLORIDE 104 mmol/L (98-107); COSMO 280; GOT 38 U/L (10-30); GPT 30 U/L (10-36); POTASSIUM 4.4 mmol/L (3.5-5.1); SODIUM 141 mmol/L (136-145); TCO2 24 mmol/L (25-35); TOTAL BILIRUBIN 0.22 mg/dL (0.20-1.00); TOTAL PROTEIN 6.5 g/dL (6.3-8.3)
[2017-03-11] MEDS: LOVENOX SUBQ SCH (09:14)
[2017-03-11] MEDS: NICODERM PATCH TD SCH (09:14)
[2017-03-11] MEDS: PROZAC PO SCH ×2 (09:14→09:16)
[2017-03-11] MEDS: BUSPAR PO SCH ×2 (09:14→13:00)
[2017-03-11] MEDS: PERIDEX MT SCH (09:14)
[2017-03-11] MEDS: MIRALAX PO SCH (09:14)
[2017-03-11] MEDS: EFFEXOR PO SCH (09:14)
[2017-03-11] MEDS: COLACE PO SCH (09:14)
[2017-03-11] MEDS: PEPCID PO SCH (09:14)
[2017-03-11] MEDS: ASPIRIN PO SCH (09:14)
[2017-03-11] MEDS: ATIVAN IV PRN ×2 (09:33→15:04)
[2017-03-11] MEDS: ADVAIR 500/50 DISKUS INH SCH (09:46)
[2017-03-11] MEDS: ZOFRAN 16 MG in NS 50 ML IV SCH (15:29)
[2017-03-11] MEDS ORDERED: HEPARIN ONE (15:40)
[2017-03-11] MEDS: VEPESID IV SCH (15:51)
[2017-03-11] MEDS: NS IV SCH (15:51)
[2017-03-11 17:00] VITALS: BP 128/76
--- NOTE | 2017-03-12 06:33 | DISCHARGE SUMMARY ---
ADMISSION DATE: 03/03/2017 DISCHARGE DATE: 03/11/2017 CONSULTATIONS: 1. Dr. Ogden, with Hematology Oncology. 2. Dr. Dylon Claros with Infectious Disease. 3. Dr. Samir Sinclair with pulmonology. PROCEDURES: 1. Pulmonary arteriogram showed no pulmonary emboli, worsening post obstructive consolidation pneumonia primarily in the right upper lobe. Development of a tiny right effusion. 2. Bronchoscopy with endobronchial biopsies performed by Dr. Samir Sinclair that showed extensive tumor involving the right bronchial tree beginning at the right after the interests of the right main stem. 3. Abdomen and pelvis CT showed probable liver metastasis, splenomegaly, trace pelvic free fluid. 4. 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 5. Head CT was negative. 6. The right IJ vein port placement by Dr. Sage Garcia for metastatic lung cancer. DISCHARGE DIAGNOSES: 1. Extensive stage small cell lung cancer status post port placement. Status post chemotherapy. Patient being discharged home after today's chemotherapy. 2. Chronic obstructive pulmonary disease hypoxia stable. 3. Pneumonia. The patient has been on Zosyn and will be discharged on Augmentin. 4. Diabetes mellitus type 2. Continue with home medications. 5. Tobacco dependence. Discussed smoking cessation as well as the need to quit. 6. Situational depression. Continue Prozac. 7. Constipation resolving. Continue home regimen. 8. Hypothyroidism, continue Synthroid. HOSPITAL COURSE: This reveals an unfortunate 52-year-old, female known to our service. Recently diagnosed with a new right lung mass which on admission had yet to be biopsied, but is suspicious for malignancy. Coronary artery disease status post bypass grafting , hypertension, hyperlipidemia, diabetes mellitus type 2, GERD, hypothyroidism, depression, COPD but continues to use tobacco products. The patient during the night of her admission started having new onset shortness of breath, right-sided chest and rib pain. She stated that her wrist has been hurting for approximately 2 weeks, but the night before her admission had moved up into her chest. It did not radiate into the jaw or the left side of her chest. She has had 2 rounds of outpatient antibiotic treatment for bronchitis and failed outpatient treatment. Laboratory data was obtained is obtained in the ED that showed a white count of 15. A CT angiogram showed a right hilar and mediastinal mass with mediastinal and right supra ventricular adenopathy, some compression on the SVC similar to a prior scan, increased postobstructive consolidation at the right upper lobe and superior segment of the right upper lobe. Also noted a small right pleural effusion. It did rule out pulmonary embolism. The patient was admitted with an oncology consult, started on IV antibiotics as well as bronchodilators and aggressive pulmonary toilet and a pulmonary consult. The patient underwent a bronchoscopy with biopsy with Dr. Sinclair. It did show small-cell neuroendocrine carcinoma that was poorly differentiated. CT of the abdomen and pelvis were obtained and did show probable liver metastasis. Head CT was negative. Dr. Sage Garcia was consulted to put in a Port-A-Cath so the patient could receive her 1st round of chemotherapy. She received that on Thursday as well as her 1st round of chemotherapy. Patient will undergo her 2nd round of chemotherapy today before her discharge. Today she has no complaints. The finish her full course of antibiotics she will be sent home on Augmentin as well as antiemetics. PHYSICAL EXAMINATION: Vital signs at time of her discharge, temperature is 98.3 degrees, heart rate 78, respirations 18, blood pressure 153/78, O2 is 96% on 2 L nasal cannula. DISCHARGE DIET: Diabetic. DISCHARGE MEDICATIONS: 1. Augmentin 1 each p.o. b.i.d. 2. Aspirin 81 mg p.o. q.a.m. 3. BuSpar 5 mg p.o. b.i.d. 4. Coreg 6.25 mg p.o. b.i.d. 5. Pepcid 20 mg p.o. b.i.d. 6. Prozac 40 mg p.o. q.a.m. 7. Advair Diskus 1 puff inhaled RT b.i.d. 8. Ferguson 7.5/325 one each p.o. to 6 hours. 9. Imdur 30 mg p.o. q.a.m. 10. Synthroid 88 mcg p.o. daily. 11. Glucophage 1000 mg p.o. b.i.d. 12. Zofran 4 mg ODT p.o. q.6 hours p.r.n. 13. Desyrel 150 mg p.o. at bedtime. 14. Effexor 75 mg p.o. daily. FOLLOW UP: Patient is being discharged home. She has been evaluated for home O2. She will need to follow up with her primary care physician, Dr. Valente Carroll in 7-10 days as well as her steel handler Dr. Sinclair, and Dr. Ogden her oncologist. Patient can return to the ED for any worsening symptoms. DISCHARGE TIME: Was greater than 30 minutes. Dictated by ISELA Henning for Jacques Almeida MD cc: MD Valente Mcfadden MD pt examined, agree with above APENOT MTDD
== END 2017-03-11 17:05 | disposition home or self-care (01) ==
LOC: ED 14:00 → SUATTDRO 22:09 → EDIPHOLD 22:09 → 4N 03-04 13:41 → 3N 03-08 13:17
PROVIDERS: ATTEND Internal Medicine